=== PATIENT | female | born 1945 | race African-American/Black ===

== ENCOUNTER 2022-10-23 14:17 | Emergency (ER) | payer MEDICARE, BC ==
[~2022-10-23] VITALS: Ht 165.1 cm; Wt 95.2 kg
[2022-10-23] VITALS (11 sets, daily range): BP systolic 124–175; BP diastolic 59–136
[~2022-10-23 14:17] MED LIST: ANASTROZOLE1 MG PO; FISH OIL300 MG PO; MULTI VIT PO; PRILOSEC20 MG PO
[2022-10-23 14:55] LABS: BASO% 0.3 % (0-3); EOS% 6.6 % (0-8); HEMATOCRIT 45.1 % (37.0-47.0); HEMOGLOBIN 14.5 g/dl (12.0-16.0); LYMPH% 52.1 % (15-41); MEAN CELL VOLUME 91.3 fL CALC (80.0-100.0); MEAN CORPUSCULAR HGB 29.4 pG CALC (26.0-32.0); MEAN CORPUSCULAR HGB CONC 32.2 g/dL CAL (32.0-36.0); MONO% 7.1 % (2-13); NEUT# 2.06 thou/uL (2.00-7.15); NEUT% 33.9 % (42-76); RED BLOOD COUNT 4.94 mill/uL (4.20-5.60); RED CELL DISTRI WIDTH 13.2 % (11.5-15.5)
[2022-10-23 15:09] LABS: ALBUMIN 4.4 g/dL (3.2-5.0); ALKALINE PHOSPHATASE 67 u/l (38-126); ANION GAP 14 (6-22 (CALC)); BILIRUBIN, TOTAL 0.4 mg/dL (0.02-1.3); BUN 16 mg/dL (8-23); BUN/CREATININE RATIO 17 (12-20 (CALC)); CARBON DIOXIDE 22 mmol/l (22-30); CHLORIDE 108 mmol/l (95-108); CREATININE 0.9 mg/dL (0.5-1.0); GFR FOR AFR.AMER. > 60 ML/MIN (>=60 (CALC)); GFR OTHER RACES > 60 ML/MIN (>=60 (CALC)); POTASSIUM 4.4 mmol/l (3.5-5.1); SGOT/AST 35 u/l (9-36); SODIUM 139 mmol/l (137-146); TOTAL PROTEIN 7.9 g/dL (6.3-8.2)
== END 2022-10-23 17:35 | disposition home or self-care (01) ==
LOC: ED 14:17
PROVIDERS: Family Medicine
DX: T85.848A Pain due to other internal prosthetic devices, implants and grafts, initial encounter (principal); Y83.1 Surgical operation with implant of artificial internal device as the cause of abnormal reaction of the patient, or of later complication, without mention of misadventure at the time of the procedure; Z98.82 Breast implant status

== ENCOUNTER 2023-06-08 23:37 | Observation (INO) | payer MEDICARE, BC ==
[~2023-06-08] VITALS: Ht 165.1 cm; Wt 121.0 kg
--- NOTE | 2023-06-08 23:38 | NUR ---
PATIENT TO [facility] #14 VIA EMS AT THIS TIME.
--- NOTE | 2023-06-08 23:50 | NUR ---
PATIENT ASSESSED BY SN. PATIENT IN NO DISTRESS. EKG COMPLETED . DR. GUERRERO MADE AWARE OF PATIENTS ARRIVAL IN THE ED.
[2023-06-08 23:52] VITALS: BP 177/155
[2023-06-08 23:53] VITALS: BP 166/70
[2023-06-09] VITALS (14 sets, daily range): BP systolic 131–175; BP diastolic 52–146
--- NOTE | 2023-06-09 01:05 | NUR ---
RECIEVED REPORT FROM MARTHA COONEY AT THIS TIME, PATIENT UPDATED ON CONTINUOUS PLAN OF CARE WITH NO FURTHER QUESTIONS OR CONCERNS AT THIS TIME, PATIENT VOICES UNDERSTANDING, AWAITING ALL FURTHER ORDERS/RESULTS.
[2023-06-09] MEDS ORDERED: amLODIPine BESYLATE 5 MG/TAB PO ONE (01:40)
[2023-06-09 02:05] LABS: EOS% 0.3 % (0-8); IMMATURE GRANULOCYTES 0.3 % (0.0-5.0); LYMPH% 39.4 % (15-41); MEAN CELL VOLUME 91.5 fL CALC (80.0-100.0); MEAN CORPUSCULAR HGB 29.6 pG CALC (26.0-32.0); MEAN CORPUSCULAR HGB CONC 32.3 g/dL CAL (32.0-36.0); MONO% 1.1 % (2-13); NEUT# 2.14 thou/uL (2.00-7.15); NEUT% 58.9 % (42-76); RED BLOOD COUNT 3.18 mill/uL (4.20-5.60); RED CELL DISTRI WIDTH 17.1 % (11.5-15.5)
--- NOTE | 2023-06-09 02:05 | NUR ---
PATIENT MEDICATED PER ORDERS AT THIS TIME, UPDATED ON CONTINUOUS PLAN OF CARE WITH NO FURTHER QUESTIONS OR CONCERNS AT THIS TIME. PATIENT PROVIDED COMFORT MEASURES AT THIS TIME, LIGHTS DIMMED. AWAITING ALL FURTHER RESULTS/ORDERS AT THIS TIME.
[2023-06-09 02:11] LABS: HEMATOCRIT 29.1 % (37.0-47.0); HEMOGLOBIN 9.4 g/dl (12.0-16.0)
[2023-06-09 02:18] LABS: URINE BILIRUBIN - DIPSTICK Negative (NEGATIVE); URINE BLOOD DIPSTICK Negative (NEGATIVE); URINE GLUCOSE - DIPSTICK Negative (NEGATIVE); URINE KETONE Negative (NEGATIVE); URINE LEUK ESTERASE Negative (NEGATIVE); URINE NITRITE - DIPSTICK Negative (Negative); URINE PH 5.5 (4.5-8.0); URINE PROTEIN - DIPSTICK Negative (NEG-TRACE); URINE SPECIFIC GRAVITY >=1.030; URINE UROBILINOGEN - DIPSTICK 0.2 E.U./dL (0.2)
[2023-06-09 02:21] LABS: ALKALINE PHOSPHATASE 80 u/l (38-126); ANION GAP 6 (6-22 (CALC)); BILIRUBIN, TOTAL 0.3 mg/dL (0.02-1.3); BUN 22 mg/dL (8-23); BUN/CREATININE RATIO 36 (12-20 (CALC)); CARBON DIOXIDE 23 mmol/l (22-30); CHLORIDE 112 mmol/l (95-108); CREATININE 0.6 mg/dL (0.5-1.0); GFR FOR AFR.AMER. > 60 ML/MIN (>=60 (CALC)); GFR OTHER RACES > 60 ML/MIN (>=60 (CALC)); POTASSIUM 3.7 mmol/l (3.5-5.1); SODIUM 138 mmol/l (137-146)
[2023-06-09 02:27] LABS: ALBUMIN 2.8 g/dL (3.2-5.0); SGOT/AST 113 u/l (9-36); TOTAL PROTEIN 5.7 g/dL (6.3-8.2)
[2023-06-09 02:30] LABS: URINE COLOR Yellow
--- NOTE | 2023-06-09 02:55 | NUR ---
PATIENT UPDATED ON CONTINUOUS PLAN OF CARE WITH NO FURTHER QUESTIONS OR CONCERNS AT THIS TIME, PATIENT RESTING IN SEMI-FOWLERS POSITION, FAMILY AT BEDSIDE, AWAITING ALL FURTHER RESULTS/ORDERS AT THIS TIME.
--- NOTE | 2023-06-09 03:40 | NUR ---
MD AT BEDSIDE FOR DISCUSSION OF ALL RESULTS AND PLAN OF CARE AT THIS TIME. AWAITING FURTHER ORDERS AT THIS TIME.
[2023-06-09] MEDS ORDERED: CRESTOR5 MG PO (03:56)
[2023-06-09] MEDS ORDERED: D325 MCG PO (03:57)
[2023-06-09] MEDS ORDERED: DECADRON4 MG PO (03:57)
[2023-06-09] MEDS ORDERED: ASPIRINCHW 81MG PO (03:58)
[2023-06-09] MEDS ORDERED: PREVAGEN EXTRA20 MG PO (03:59)
--- NOTE | 2023-06-09 04:00 | NUR ---
MED REC COMPLETE AT THIS TIME, PATIENT UPDATED ON CONTINUOUS PLAN OF CARE AT THIS TIME. PATIENT VOICES UNDERSTANDING OF CONTINUED PLAN OF CARE AND ADMISSION AT THIS TIME, PATIENT VOICES APPRECIATION OF CARE AT THIS TIME. PATIENT PROVIDED WARM BLANKET WITH LIGHTS DIMMED.
--- NOTE | 2023-06-09 05:00 | NUR ---
REPORT GIVEN TO RICKEY AT THIS TIME, PATIENT TRANSFERRED TO MS2 BED AT THIS TIME, AMB TO BR AND BACK TO BED AT THIS TIME, PATIENT UPDATED ON CONTINUOUS PLAN OF CARE WITH NO FURTHER QUESTIONS OR CONCERNS AT THIS TIME, PATIENT VOICES APPRECIATION OF CARE AT THIS TIME.
--- NOTE | 2023-06-09 05:15 | NUR ---
report rec'd. nurse aware of need for admission orders. 77 yr old female admitted to er 15 as medsurg tele overflow. 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 saline lock in place lac. history obtained per pt & er record. fall precautions initiated.
[2023-06-09] MEDS ORDERED: ACETAMINOPHEN 325 MG/TAB PO PRN (05:25)
[2023-06-09] MEDS ORDERED: SODIUM CHLORIDE 0.9% 1,000 ML IV PRN (05:25)
[2023-06-09] MEDS ORDERED: MAGNESIUM HYDROXIDE 30 ML UDC PO PRN (05:25)
--- NOTE | 2023-06-09 07:58 | NUR ---
PATIENT REPOSITIONED TO HIGH FOWL FOR BREAKFAST. ALERT AND ORIENTED X 3. DENIES PAIN AT THIS TIME. BREATHING EVEN AND UNLABORED ON ROOM AIR. SR ON THE MONITOR. AMBULATES AD LAVELLE. STRONG PERIPHERAL/PEDAL PULSES. LAST BM 06/08. ABDOMEN SOFT, BOWEL SOUNDS ACTIVE. SAFETY MEASURES IN PLACE, INCLUDING BED IN LOW POSITION AND CALL LIGHT RESTING NEXT TO L ARM. NO APPARENT DISTRESS NOTED. WILL CONTINUE WITH PLAN OF CARE.
[2023-06-09 08:58] LABS: HEMATOCRIT 34.9 % (37.0-47.0); HEMOGLOBIN 11.2 g/dl (12.0-16.0); IMMATURE GRANULOCYTES 0.2 % (0.0-5.0); MEAN CELL VOLUME 91.8 fL CALC (80.0-100.0); MEAN CORPUSCULAR HGB 29.5 pG CALC (26.0-32.0); MEAN CORPUSCULAR HGB CONC 32.1 g/dL CAL (32.0-36.0); PLATELET COUNT 299 thou/uL (130-400); RED CELL DISTRI WIDTH 17.1 % (11.5-15.5)
[2023-06-09 09:25] LABS: ANISOCYTOSIS FEW; MANUAL DIFFERENTIAL YES; POIKILOCYTOSIS MARKED
[2023-06-09 09:27] LABS: SCHISTOCYTES FEW; TARGET CELLS FEW
[2023-06-09] MEDS ORDERED: POTASSIUM CHLORIDE 20 MEQ/TAB PO SCH (10:30)
--- NOTE | 2023-06-09 10:38 | NUR ---
PATIENT WALKED TWICE AROUND ER UNIT: - GAIT STEADY, DENIES ANY NAUSEA OR DIZZINESS PATIENT STATES SHE "FEELS FINE".
--- NOTE | 2023-06-09 11:55 | NUR ---
PATIENT UP IN BED FOR LUNCH. DENIES PAIN AT THIS TIME. PATIENT NOT ON THE MONITOR AT THIS TIME, AWAITING DISCHARGE. NO APPARENT DISTRESS NOTED. WILL CONTINUE WITH PLAN OF CARE.
--- NOTE | 2023-06-09 15:52 | NUR ---
Discharge instructions given. Patient verbalizes understanding of same. Discharged in stable condition via Ambulatory to Home with family. All belongings sent with pt.
== END 2023-06-09 15:52 | disposition home or self-care (01) ==
LOC: ED 23:37 → ED-I 06-09 03:45
PROVIDERS: Family Medicine; ADMIT Student in an Organized Health Care Education/Training Program; ATTEND Student in an Organized Health Care Education/Training Program
DX: C50.919 Malignant neoplasm of unspecified site of unspecified female breast (principal); D63.0 Anemia in neoplastic disease; E87.6 Hypokalemia; Z79.60 Long term (current) use of unspecified immunomodulators and immunosuppressants; Z90.10 Acquired absence of unspecified breast and nipple